=== PATIENT | female | born 1985 | race Two or more races ===

== ENCOUNTER → 2017-04-17 | Outpatient (CLI) | payer OTHER | LOC: OD 08:54 | PROVIDERS: ATTEND Specialist | DX: J02.9 Acute pharyngitis, unspecified (principal) | CPT/HCPCS: 87880 ==

== ENCOUNTER → 2017-10-27 | Outpatient (CLI) | payer OTHER ==
[2017-10-27 11:40] LABS: A TYPE INFLUENZA AG NEGATIVE (NEGATIVE); B INFLUENZA AG POSITIVE (NEGATIVE)
== END ==
LOC: OD 10:44
PROVIDERS: ATTEND Midwife
DX: R50.9 Fever, unspecified (principal); Z20.828 Contact with and (suspected) exposure to other viral communicable diseases
CPT/HCPCS: 87804

== ENCOUNTER 2018-04-27 16:57 | Outpatient (CLI) | payer OTHER ==
--- NOTE | 2018-04-27 17:57 | Non Stress Test Report ---
Non Stress Test Datetime Report Generated by CPN: 04/27/2018 17:57 DEMOGRAPHIC EGA NST: 34.5 INDICATION Indication for Study: Ordered by Provider Indication for Study: Ordered by Provider VITAL SIGNS Temperature - NST: 98.6 Temperature - NST: 98.6 Pulse - NST: 83 Pulse - NST: 83 RESP - NST: 18 RESP - NST: 18 NBPSYS NST: 95 NBPSYS NST: 95 NBPDIA NST: 47 NBPDIA NST: 47 MONITORING Monitor Explained: Monitor Explained; Test Explained; Patient Verbalized Understanding Monitor Explained: Monitor Explained; Test Explained; Patient Verbalized Understanding Time on Monitor: 04/27/2018 17:04 Time on Monitor: 04/27/2018 17:05 Time off Monitor: 04/27/2018 17:35 Time off Monitor: 04/27/2018 17:35 NST Duration: 31 NST Duration: 30 NST INTERVENTIONS NST Interventions: PO Hydration; Reposition Patient NST Interventions: PO Hydration; Reposition Patient Physician Notified NST: Dr Shipley Physician Notified NST: Dr. Shipley BABY A: [id number] BABY A Movement : Present Movement : Present; Increased Contraction Frequency : intermittent Contraction Frequency : denies FHR Baseline : 145 FHR Baseline : 150 Accelerations : 15X15 Accelerations : Prolonged Decelerations : None Decelerations : None Variability : Moderate 6-25bpm Variability : Moderate 6-25bpm NST Review: Meets Criteria for Reactive NST NST Review: Meets Criteria for Reactive NST NST Review and Verified By : BRANT Kim Results: Reactive NST Results: Reactive NST REPORT Report Trigger: Send Report
== END 2018-04-27 17:40 | disposition home or self-care (01) ==
LOC: LC 16:57
PROVIDERS: ATTEND Obstetrics & Gynecology
PROC: 4A1HXCZ Monitoring of Products of Conception, Cardiac Rate, External Approach (ICD-10-PCS; principal; 2018-04-27)
DX: O36.8330 Maternal care for abnormalities of the fetal heart rate or rhythm, third trimester, not applicable or unspecified (principal); Z3A.34 34 weeks gestation of pregnancy
CPT/HCPCS: 59025

== ENCOUNTER 2018-05-13 16:00 | Outpatient (CLI) | payer OTHER ==
--- NOTE | 2018-05-13 17:28 | Non Stress Test Report ---
Non Stress Test Datetime Report Generated by CPN: 05/13/2018 17:27 DEMOGRAPHIC EGA NST: 37.0 INDICATION Indication for Study: Decreased Movement MONITORING Monitor Explained: Monitor Explained; Test Explained; Patient Verbalized Understanding Time on Monitor: 05/13/2018 16:12 Time off Monitor: 05/13/2018 17:02 NST Duration: 50 NST INTERVENTIONS NST Interventions: PO Hydration Physician Notified NST: C Toscano, CNM BABY A: [id number] BABY A Movement : Present Contraction Frequency : x1 FHR Baseline : 140 Accelerations : 15X15 Decelerations : None Variability : Moderate 6-25bpm NST Review: Meets Criteria for Reactive NST NST Review and Verified By : BRANT Hopkins Results: Reactive NST REPORT Report Trigger: Send Report
== END 2018-05-13 17:09 | disposition home or self-care (01) ==
LOC: LC 16:00
PROVIDERS: ATTEND Obstetrics & Gynecology
PROC: 4A1HXCZ Monitoring of Products of Conception, Cardiac Rate, External Approach (ICD-10-PCS; principal; 2018-05-13)
DX: O36.8130 Decreased fetal movements, third trimester, not applicable or unspecified (principal); Z3A.37 37 weeks gestation of pregnancy
CPT/HCPCS: 59025

== ENCOUNTER 2018-05-27 05:03 | Inpatient (IN) | payer OTHER ==
[2018-05-24 10:51] LABS: APPEARANCE,URINE CLEAR; BILIRUBIN,URINE NEGATIVE (NEGATIVE); COLOR,URINE STRAW; GLUCOSE, URINE NEGATIVE (NEGATIVE); KETONES,URINE NEGATIVE (NEGATIVE); LEUKOCYTE ESTERASE,URINE NEGATIVE (NEGATIVE); NITRITE,URINE NEGATIVE (NEGATIVE); PROTEIN,URINE NEGATIVE (NEGATIVE); URINE SPECIFIC GRAVITY 1.008; UROBILINOGEN,URINE NEGATIVE mg/dL (<2.0)
[2018-05-24 11:08] LABS: URINE AMPHETAMINES SCREEN NEGATIVE; URINE BARBITURATES SCREEN NEGATIVE; URINE BENZODIAZEPINES SCREEN NEGATIVE; URINE COCAINE SCREEN NEGATIVE; URINE MARIJUANA (THC) SCREEN NEGATIVE; URINE METHADONE SCREEN NEGATIVE; URINE PHENCYCLIDINE SCREEN NEGATIVE
[2018-05-25 09:05] LABS: ABSOLUTE EOSINOPHILS # (AUTO) 0.3 10^3/uL (0.0-0.6); ABSOLUTE LYMPHOCYTES (AUTO) 1.8 10^3/uL (0.5-4.7); ABSOLUTE MONOCYTES (AUTO) 0.8 10^3/uL (0.1-1.4); ABSOLUTE NEUT (AUTO) 7.3 10^3/uL (1.7-8.2); BASOPHILS % (AUTO) 0.4 % (0-2); EOSINOPHILS % (AUTO) 2.5 % (0-6); HEMATOCRIT 33.9 % (36.0-47.0); HEMOGLOBIN 11.5 g/dL (12.0-15.5); LYMPHOCYTES % (AUTO) 17.6 % (13-45); MEAN CORPUSCULAR HEMOGLOBIN 30.1 pg (27.0-33.4); MEAN CORPUSCULAR VOLUME 89 fl (80-97); PLATELET COUNT 181 10^3/uL (150-450); RED BLOOD COUNT 3.83 10^6/uL (3.72-5.28); RED CELL DISTRIBUTION WIDTH 14.1 % (11.5-14.0); SEGMENTED NEUTROPHILS % (AUTO) 71.5 % (42-78); TOTAL CELLS COUNTED % (AUTO) 100 %; WHITE BLOOD COUNT 10.2 10^3/uL (4.0-10.5)
[~2018-05-27 05:03] MED LIST: CEFAZOLIN 1 GM/D5W RTU 1 GM/50 ML RTUPB IV PRN; LACTATED RINGERS 1000 ML IV PRN; LIDOCAINE 0.5% INJ-PF (5 MG/ML) 50 ML SDV SUBCUT PRN; RINGERS SOLUTION,LACTATED 1,500 ML IV PRN
[2018-05-27] MEDS ORDERED: BUPIVACAINE HCL/DEX-WATER/PF 15 MG/2 ML AMPULE ONE (07:18)
[2018-05-27] MEDS ORDERED: EPHEDRINE SULFATE INJ 50 MG/1 ML AMPULE ONE (07:18)
[2018-05-27] MEDS ORDERED: FENTANYL CITRATE INJ/PF 100 MCG/2 ML AMPUL ONE (07:18)
[2018-05-27] MEDS ORDERED: KETOROLAC TROMETHAMINE INJ/PF 30 MG/1 ML SDV ONE (07:18)
[2018-05-27] MEDS ORDERED: OXYTOCIN 10 UNIT/ML VIAL ONE (07:18)
[2018-05-27] MEDS ORDERED: ONDANSETRON HCL INJ/PF 4 MG/2 ML SDV ONE (07:19)
[2018-05-27] MEDS ORDERED: ACETAMINOPHEN 1,000 MG/100 ML RTUPB IV ONE (07:19)
[2018-05-27] MEDS ORDERED: MIDAZOLAM 2 MG/2 ML INJ ONE (07:19)
[2018-05-27] MEDS ORDERED: OXYTOCIN/NORMAL SALINE 20 UNIT/1,000 ML RTUINJ ONE (07:19)
[2018-05-27] MEDS ORDERED: ONDANSETRON HCL INJ/PF 4 MG/2 ML SDV IV PRN ×2 (08:09→20:41)
[2018-05-27] MEDS ORDERED: OXYCODONE-ACETAMINOPHEN 5-325 MG TABLET PO PRN ×2 (08:09)
[2018-05-27] MEDS ORDERED: MEPERIDINE HCL/PF INJ 25 MG/1 ML DISP.SYRIN IV PRN (08:09)
[2018-05-27] MEDS ORDERED: DIPHENHYDRAMINE HCL 50 MG/ML VIAL IV PRN (08:09)
[2018-05-27] MEDS ORDERED: PROMETHAZINE HCL INJ 25 MG/1 ML VIAL IV PRN ×3 (08:09→08:30)
[2018-05-27] MEDS ORDERED: FENTANYL CITRATE INJ/PF 100 MCG/2 ML AMPUL IV PRN ×3 (08:09)
[2018-05-27] MEDS ORDERED: RINGERS SOLUTION,LACTATED 1,000 ML IV PRN (08:30)
[2018-05-27] MEDS ORDERED: ACETAMINOPHEN 1,000 MG/100 ML RTUPB IV PRN (08:30)
[2018-05-27] MEDS ORDERED: OXYTOCIN/NORMAL SALINE 20 UNIT/1,000 ML RTUINJ IV PRN (08:30)
[2018-05-27] MEDS ORDERED: MORPHINE SULFATE 10 MG/ML INJ IV PRN (08:30)
[2018-05-27] MEDS ORDERED: SIMETHICONE 80 MG TAB.CHEW PO PRN (08:30)
[2018-05-27] MEDS ORDERED: DIPH/PERTUSS(ACELL)/TETANUS VAC/PF 0.5 ML SYR (>=10YO) IM PRN (08:30)
[2018-05-27] MEDS ORDERED: MEASLES,MUMPS&RUBELLA VACC/PF 0.5 ML VIAL SUBCUT PRN (08:30)
[2018-05-27] MEDS ORDERED: ACETAMINOPHEN 325 MG TABLET PO PRN (08:30)
[2018-05-27] MEDS ORDERED: (PENDING PHARMACY ID) (Ranitidine Hcl [Zantac 150 Mg Tablet] 1 TAB) PO SCH (10:00)
[2018-05-27] MEDS: DOCUSATE SODIUM 100 MG CAPSULE PO SCH ×2 (10:38→17:49)
[2018-05-27] MEDS: FAMOTIDINE 20 MG TABLET PO SCH (10:39)
[2018-05-27] MEDS: LEVOTHYROXINE SODIUM 0.025 MG TABLET PO SCH (10:39)
[2018-05-27] MEDS: PRENATAL VITAMIN W DHA CAPSULE PO SCH (10:39)
[2018-05-27] MEDS: OXYCODONE-ACETAMINOPHEN 5-325 MG TABLET PO PRN ×3 (11:08→20:11)
[2018-05-27] MEDS: KETOROLAC TROMETHAMINE INJ/PF 30 MG/1 ML SDV IV SCH ×2 (13:24→21:47)
[2018-05-27] MEDS ORDERED: KETOROLAC TROMETHAMINE INJ/PF 30 MG/1 ML SDV IV SCH (14:00)
[2018-05-27] MEDS ORDERED: PHENYLEPHRINE HCL INJ/PF 10 MG/1 ML SDV ONE (14:09)
--- NOTE | 2018-05-27 14:31 | OPERATIVE REPORT E ---
Operative Report NAME: JULIA PHILLIPS : 1985 AGE: 32Y DATE OF SURGERY: 05/27/2018 ROOM: 222 PREOPERATIVE DIAGNOSES: 1. IUP at 39 weeks and 0 days. 2. Previous . 3. Undesired fertility. POSTOPERATIVE DIAGNOSES: 1. IUP at 39 weeks and 0 days. 2. Previous . 3. Undesired fertility. OPERATION: Low-transverse hysterotomy section with Relampago tubal ligation. SURGEON: JAYDA SCANLON M.D. SURVEILLANCE SPECIALIST: Debbie Martin, first helper surgical supervisor. ANESTHESIA: Terence Dee M.D. with a spinal and Silverio Diaz CRNA COMPLICATIONS: None. ESTIMATED BLOOD LOSS: 600 mL. FINDINGS: A female infant in cephalic presentation with Apgars of 8 and 9, weight 6 pounds 4 ounces. Normal uterus, tubes, and ovaries. PROCEDURE IN DETAIL: Patient was taken to the operating room, prepared, and draped in a normal sterile fashion in a supine position with a leftward tilt. A transverse skin incision was made with a scalpel following the patient's previous scar, and this was carried through the underlying layer of fascia with the same scalpel. The fascia was excised in the midline and extended laterally with Steve. The fascia was dissected from the rectus muscles sharply with the Steve and the rectus muscle was divided. Peritoneal cavity was entered bluntly with surgeon finger fracture with good visualization of the bladder and the uterus. A bladder blade was inserted and the hysterotomy was nicked with a scalpel and extended laterally with surgeon finger fracture. The infant was then delivered atraumatically. The nose and mouth were suctioned with a suction bulb and the cord was clamped and cut, and the infant was handed off to awaiting algebra teacher. The cord blood was collected and the placenta was removed manually. The uterus was exteriorized and cleared of clots and debris. The hysterotomy was closed with 0 Monocryl in a running, locked fashion. A second layer of the same suture was used to imbricate to ensure hemostasis. Attention was turned to the tubal ligation where the right fallopian tube was grasped with a Fallon and the mesosalpinx was divided with the Bovie. A large 3.5 cm section of the fallopian tube was then tied off with 2 pieces of 2-0 chromic and the intermediate section was removed with Metzenbaums and the pedicles were made hemostatic with the Bovie. This was repeated on the left fallopian tube without difficulty. The uterus was returned to the abdomen. The peritoneal cavity was cleared of clots and debris. The pedicles were reinspected and found to be hemostatic and intact. The rectus muscle and peritoneum were reapproximated with a mattress stitch of 2-0 chromic, the fascia was closed with 0 Vicryl, the subcutaneous layer was closed with plain catgut, and the skin was closed with 4-0 Vicryl. The patient tolerated the procedure well. Sponge, lap, and needle counts were correct x2. The patient was taken to recovery in stable condition. DICTATING PHYSICIAN: JAYDA SCANLON M.D. [id number] PHY#: [id number] ID: [id number] JOB#: [id number] ACCT: [id number] cc:JAYDA SCANLON M.D. >
[2018-05-28] MEDS: IBUPROFEN 800 MG TABLET PO SCH ×4 (03:11→20:06)
[2018-05-28] MEDS: LEVOTHYROXINE SODIUM 0.025 MG TABLET PO SCH (05:24)
[2018-05-28] MEDS: OXYCODONE-ACETAMINOPHEN 5-325 MG TABLET PO PRN ×4 (06:12→20:07)
[2018-05-28 06:23] LABS: HEMATOCRIT 31.8 % (36.0-47.0); HEMOGLOBIN 11.1 g/dL (12.0-15.5); MEAN CORPUSCULAR HEMOGLOBIN 30.6 pg (27.0-33.4); MEAN CORPUSCULAR HGB CONC 34.9 g/dL (32.0-36.0); MEAN CORPUSCULAR VOLUME 88 fl (80-97); PLATELET COUNT 173 10^3/uL (150-450); RED BLOOD COUNT 3.62 10^6/uL (3.72-5.28); WHITE BLOOD COUNT 13.2 10^3/uL (4.0-10.5)
[2018-05-28] MEDS ORDERED: OXYCODONE-ACETAMINOPHEN 5-325 MG TABLET PO ONE (09:00)
[2018-05-28] MEDS: PRENATAL VITAMIN W DHA CAPSULE PO SCH (10:14)
[2018-05-28] MEDS: DOCUSATE SODIUM 100 MG CAPSULE PO SCH ×2 (10:14→17:33)
[2018-05-28] MEDS: FAMOTIDINE 20 MG TABLET PO SCH (10:16)
--- NOTE | 2018-05-28 10:24 | PDOC PROGRESS REPORT ---
Subjective-OB Progress Note for:: 05/28/18 - POD #1, Rpt , doing well. O+, rubella immune, Physical Exam (OB) Vital Signs: Temp Pulse Resp BP Pulse Ox 98.6 F 68 16 88/44 L 98 05/28/18 04:32 05/28/18 04:32 05/28/18 04:32 05/28/18 06:28 05/28/18 04:32 Intake & Output 05/27/18 05/28/18 05/29/18 06:59 06:59 06:59 Intake Total 400 Output Total 1825 Balance -1425 Weight 178 kg - General General Appearance: Appears well, Alert - PIH/Pre-Eclampsia Clonus: Negative Headache: Absent Epigastric Pain: No Visual Changes: No - Dressing Removed: No Incision: Dressing Closure Type: Sutures - Lochia Lochia Amount: Scant < 10 ml Lochia Color: Rubra/Red - Abdomen Description: Soft, Flat Hernia Present: No Fundal Description: Firm, Midline Fundal Height: u/u - u/2 - Respiratory Respiratory Status: No respiratory distress Chest Status: Nontender Breath sounds: Clear Chest Palpation: Normal - Cardiovascular Rhythm: Regular Heart Sounds: Normal auscultation - Abdominal Inspection: Normal Distension: No distension Tenderness: Nontender Abdominal Notes: +bowel sounds - Genitourinary Genitourinary Note: voiding - Extremities Upper extremity: Normal inspection Lower extremities: Edema - trace - Neurological Cognition: Normal Orientation: AAOx4 - Psychological Associated symptoms: Normal affect, Normal mood - Skin Skin Temperature: Warm Skin Moisture: Dry Objective-Diagnostic Laboratory: 05/28/18 06:04 05/28/18 06:04 WBC 13.2 H RBC 3.62 L Hgb 11.1 L Hct 31.8 L MCV 88 MCH 30.6 MCHC 34.9 RDW 14.0 Plt Count 173 Assessment and Plan(PN) - Assessment and Plan (1) Status post repeat low transverse section Is this a current diagnosis for this admission?: Yes - Time Spent with Patient Time with patient: Less than 15 minutes - Disposition Anticipated Discharge: Home Within: within 48 hours
[2018-05-28] MEDS ORDERED: IBUPROFEN 800 MG TABLET PO SCH (12:00)
[2018-05-29] MEDS: IBUPROFEN 800 MG TABLET PO SCH ×2 (03:20→10:28)
[2018-05-29 05:23] VITALS: BP 96/54
[2018-05-29] MEDS: LEVOTHYROXINE SODIUM 0.025 MG TABLET PO SCH (05:41)
[2018-05-29] MEDS: OXYCODONE-ACETAMINOPHEN 5-325 MG TABLET PO PRN (06:49)
--- NOTE | 2018-05-29 10:10 | PDOC DISCHARGE SUMMARY ---
Final Diagnosis Discharge Date: 05/29/18 - POD #2, doing well, no complaints, desires to go home today. - Final Diagnosis (1) Status post repeat low transverse section Is this a current diagnosis for this admission?: Yes Discharge Data - Discharge Medication Prescriptions: Ibuprofen [Motrin 800 mg Tablet] 800 mg PO Q6A #60 tablet Oxycodone HCl/Acetaminophen [Percocet 5-325 mg Tablet] 1 tab PO Q4HP PRN #30 tablet PRN Reason: Home Medications: Levothyroxine Sodium [Synthroid 0.025 mg Tablet] 1 tab PO DAILY 04/27/18 Ranitidine HCl [Zantac 150 mg Tablet] 1 tab PO DAILY 04/27/18 Ibuprofen [Motrin 800 mg Tablet] 800 mg PO Q6A #60 tablet 05/29/18 Oxycodone HCl/Acetaminophen [Percocet 5-325 mg Tablet] 1 tab PO Q4HP PRN #30 tablet 05/29/18 Vit/Dha [ Multi + Dha Capsule] 1 cap PO DAILY capsule Reason(s) for Admission: Ceasarean Section-Repeat Procedures: Ultrasound Intrapartum Procedure(s): : Low Cervical, Transverse - Diagnosis Test Laboratory: Temp Pulse Resp BP Pulse Ox 98.0 F 65 16 96/54 L 98 05/29/18 04:21 05/29/18 04:21 05/29/18 04:21 05/29/18 04:21 05/29/18 04:21 05/24/18 05/25/18 05/28/18 09:59 08:34 06:04 RBC 3.83 3.62 L Hgb 11.5 L 11.1 L Hct 33.9 L 31.8 L Urine Opiates Screen NEGATIVE - Discharge information/Instructions Discharge Activity: Activity As Tolerated, No Lifting Over 10 Pounds, Pelvic Rest Discharge Diet: As Tolerated, Regular Disposition: HOME, SELF-CARE Follow up with: [facility] in: 1, Weeks
[2018-05-29] MEDS: FAMOTIDINE 20 MG TABLET PO SCH (10:28)
[2018-05-29] MEDS: PRENATAL VITAMIN W DHA CAPSULE PO SCH (10:30)
[2018-05-29] MEDS: DOCUSATE SODIUM 100 MG CAPSULE PO SCH (10:30)
== END 2018-05-29 12:45 | disposition home or self-care (01) | DRG 785 ==
LOC: 2S 05:03
PROVIDERS: ADMIT Obstetrics & Gynecology; ATTEND Obstetrics & Gynecology
PROC: 0UB70ZZ Excision of Bilateral Fallopian Tubes, Open Approach (ICD-10-PCS; 2018-05-27)
PROC: 4A1HXCZ Monitoring of Products of Conception, Cardiac Rate, External Approach (ICD-10-PCS; 2018-05-27)
PROC: 10D00Z1 Extraction of Products of Conception, Low, Open Approach (ICD-10-PCS; principal; 2018-05-27 07:45)
PROC: 3E02340 Introduction of Influenza Vaccine into Muscle, Percutaneous Approach (ICD-10-PCS; 2018-05-29)
DX: O34.211 Maternal care for low transverse scar from previous cesarean delivery (principal); Z30.2 Encounter for sterilization; Z3A.39 39 weeks gestation of pregnancy; Z37.0 Single live birth; Z23 Encounter for immunization
CPT/HCPCS: 1961; 36415; 59025; 80307; 81001; 85025; 85027; 86850; 86900; 86901; 88302; 90471; 90686; 94799; G0008; J0131; J0690; J1885; J2250; J2370; J2405; J2550; J2590; J3010; J3490